=== PATIENT | female | born 1945 | race Caucasian/White ===

== ENCOUNTER 2017-06-15 16:01 | Inpatient (IN) | payer MEDICARE, OTHER ==
--- NOTE | 2017-06-15 16:08 | HP ---
SUPERVISING PHYSICIAN: Manav Noel MD CHIEF COMPLAINT: Status post right total knee arthroplasty. HISTORY OF PRESENT ILLNESS: This is a 71-year-old female patient who is being admitted to [facility] for a Swing Bed admission after she had right total knee arthroplasty per Dr. Daniel See. She will be admitted for physical therapy, strengthening and conditioning. PAST MEDICAL HISTORY: 1. Hypertension. 2. Arrhythmias. 3. Asthma. 4. Sleep apnea. 5. Diabetes. 6. Hypothyroidism. PAST SURGICAL HISTORY: 1. Two cardiac stents. 2. Hysterectomy. 3. Tonsillectomy. OUTPATIENT MEDICATIONS: Per the EMR and awaiting verification. ALLERGIES: CEPHALEXIN, AZITHROMYCIN, PENICILLINS, SULFA. SOCIAL HISTORY: She is a nonsmoker. There is no history of any alcohol use. REVIEW OF SYSTEMS: Unable to obtain due to the patient's lethargy. PHYSICAL EXAMINATION: VITAL SIGNS: Afebrile. Heart rate 89. Blood pressure 90/52. Respiratory rate 18. O2 saturation 95% on room air. GENERAL: This is a 71-year-old, obese, female patient who is lying in her hospital bed. She is in no acute distress. HEENT: Normocephalic, atraumatic. Pupils are equal and reactive. Oropharynx is clear. NECK: Supple without mass. RESPIRATORY: Somewhat diminished at the bases, otherwise clear to auscultation bilaterally. ABDOMEN: Soft, nondistended, nontender. Bowel sounds are positive. EXTREMITIES: She has a dressing to her right knee that is dry and intact. Bilateral pedal pulses are palpable at +2. There is no cyanosis or edema except around the incision site of the right knee. NEUROLOGIC: She is very lethargic. She is unable to answer questions at this time, but she does awaken and mumble words. LABORATORY AND FILMS: There are no labs or films to report at this time. ASSESSMENT: 1. Right total knee arthroplasty per Dr. Daniel See, postoperative day 3, being admitted to [facility] for Swing Bed admission. 2. Hypertension. 3. Asthma. 4. Sleep apnea. 5. Diabetes. 6. Hypothyroidism. PLAN: We will admit the patient to the hospital for Swing Bed. Physical therapy consulted for strengthening and conditioning. Her home medications have not bee started as they are awaiting verification, but she did re-start her Cleocin which was ordered by her orthopedic surgeon. She is supposed to get fondaparinux for her anticoagulant and we do not have that in our hospital, so we will need to decide what anticoagulant we will start her on tomorrow. She did get a dose of that today. I am not quite sure why she is so lethargic. I will order some neuro checks and we will monitor her neuro status overnight. There is no family at the bedside for me to discuss her condition with. I will also order some pulmonary hygiene as well as some albuterol treatments. Meanwhile, we will continue to monitor the patient closely and follow as needed. Dr. Noel is the collaborating physician and available for consultation. #[id number] [facility]
[2017-06-15] MEDS ORDERED: SODIUM PHOS/BIPHOS ENEMA ADULT 133 ML BTTL PR PRN (18:33)
[2017-06-15] MEDS ORDERED: MAGNESIUM HYDROXIDE 30 ML UD PO PRN (18:33)
[2017-06-15] MEDS ORDERED: ACETAMINOPHEN 500 MG TAB PO PRN (18:33)
[2017-06-15] MEDS ORDERED: GLUCAGON INJ 1 MG VIAL SUBCU PRN (18:35)
[2017-06-15] MEDS ORDERED: DEXTROSE 50% 25 GM/50 ML SYG IV PRN (18:35)
[2017-06-15] MEDS ORDERED: CLINDAMYCIN HCL CAP 150 MG CAP PO SCH (21:00)
[2017-06-15] MEDS: INSULIN LISPRO 100 UNITS/ML PEN SUBCU SCH (21:12)
[2017-06-15] MEDS: BIFIDOBACTERIUM INFANTIS 4 MG CAP PO SCH (21:23)
[2017-06-16] MEDS: ALBUTEROL SULFATE 2.5 MG/3 ML VIAL NEB SCH ×5 (08:14→21:12)
[2017-06-16] MEDS: INSULIN LISPRO 100 UNITS/ML PEN SUBCU SCH ×4 (08:23→21:12)
[2017-06-16] MEDS ORDERED: NALOXONE HCL INJ 0.4 MG/ML VIAL IV ONE (08:58)
[2017-06-16] MEDS ORDERED: NALOXONE HCL INJ 0.4 MG/ML VIAL IM ONE (09:06)
[2017-06-16] MEDS: BIFIDOBACTERIUM INFANTIS 4 MG CAP PO SCH ×2 (10:26→21:50)
[2017-06-16] MEDS: DOCUSATE SODIUM 100 MG CAP PO SCH (10:26)
[2017-06-16] MEDS: CLINDAMYCIN HCL CAP 150 MG CAP PO SCH ×3 (10:40→21:55)
[2017-06-16] MEDS: RIVAROXABAN 10 MG TAB PO SCH (10:47)
--- NOTE | 2017-06-16 11:56 | PCM.CORE ---
Physician DVT/VTE - Prophylaxis Currently: Patient already on anticoagulation therapy - Nurse DVT Assessment & Total Each Risk Factor Represents 5 Points: Elective Arthtroplasty Each Risk Factor Represents 2 Points: Age 60-74 Each Risk Factor is 1 Point: Varicose Veins/Edema Legs DVT Assessment Score: 8 - 5 or more Very High Risk Treatments: Sequential Compression Device
[2017-06-16] MEDS ORDERED: NALOXONE HCL INJ 0.4 MG/ML VIAL ONE (13:25)
[2017-06-16] MEDS ORDERED: SODIUM CHLORIDE 0.9% 1000ML 1,000 ML IVS PRN (16:53)
[2017-06-16] MEDS ORDERED: HYDROcodone 7.5MG/APAP 325MG 1 EA TAB PO PRN (16:54)
--- NOTE | 2017-06-16 18:02 | PN ---
DATE: 06/16/17 SUBJECTIVE: Earlier in the morning, the patient was definitely obtunded and was able to respond sometimes inappropriately, but later in the day does not remember being visited by either Dr. Milton or myself. Her pupils were small yet minimally reactive. It is of note that before leaving the hospital at [place] she received 2 of the [place] 10 mg doses for pain relief during her transport to [facility] Swing Bed Rehab. Under the assumption that possible narcotic sedation was involved, she received a very low dose of Narcan 0.2 mg IM because she did not have an IV readily available. Significant improvement was noted with her cognition and her ability to communicate, and she was much more alert with improved memory in the afternoon. Appetite is fair. Having difficulty collecting a urine specimen. She is not eating or drinking that much and will require some additional IV to assist to prevent dehydration state. Still in pain and analgesics to be continued. OBJECTIVE: Afebrile, pulse 87, blood pressure 123/65, pulse oximetry 95% on room air. Weight 116 kilos. LABORATORY: Glucose 173 fasting. The patient is noticeably confused, poorly disoriented, unable to fully answer questions appropriately. She is complaining of knee pain and is started on a CPM machine to assist with her rehabilitation. The patient is at fall risk. LUNGS: Clear. HEART: Tones regular. ABDOMEN: Soft though slightly obese. The patient is confused making it difficult especially when the patient refuses to cooperate with her ongoing rehabilitation. It is a little improved in the afternoon and further attempts to continue. ASSESSMENT: 1. Total right knee arthroplasty performed by Dr. Daniel See at the [facility], postoperative day number 4, yesterday being admitted to [facility] for Swing Bed rehabilitation. 2. History of hypertension. 3. History of asthma. 4. History of sleep apnea requiring CPAP. 5. History of diabetes mellitus. 6. History of hypothyroidism. 7. Significant sedated obtunded state probably secondary to opioid analgesic medications received last evening. Minimal response to Narcan with continued conservative approach, especially to prevent injury. PLAN: Continue with rehabilitation and close observation. Increase activity level as tolerated. Special attention to avoid falls. Continue with Xarelto anticoagulant therapy for a total of 12 days which would be approximately 8 more days. Her surgeon has ordered Cleocin for a few more days as well. Continue with analgesic control but try to avoid some of the heavy narcotics, and reevaluate in the morning. #[id number] [facility]ENTER[facility]
[2017-06-16] MEDS: KETOROLAC TROMETHAMINE INJ 30 MG/ML VIAL IV SCH (18:22)
[2017-06-16] MEDS ORDERED: SODIUM CHLORIDE 0.9% 1000ML 1,000 ML IVS ONE (22:15)
[2017-06-17] MEDS: KETOROLAC TROMETHAMINE INJ 30 MG/ML VIAL IV SCH ×3 (01:30→17:35)
[2017-06-17] MEDS: SODIUM CHLORIDE 0.9% 1000ML 1,000 ML IVS PRN ×3 (01:58→20:48)
[2017-06-17] MEDS: CLINDAMYCIN HCL CAP 150 MG CAP PO SCH ×3 (06:10→21:34)
[2017-06-17] MEDS: INSULIN LISPRO 100 UNITS/ML PEN SUBCU SCH ×4 (07:10→21:29)
[2017-06-17] MEDS: ALBUTEROL SULFATE 2.5 MG/3 ML VIAL NEB SCH ×4 (08:46→20:28)
[2017-06-17] MEDS: IV SET AND CAP CHANGE INJ INJ SCH (09:31)
[2017-06-17] MEDS: RIVAROXABAN 10 MG TAB PO SCH (09:32)
[2017-06-17] MEDS: DOCUSATE SODIUM 100 MG CAP PO SCH (09:32)
[2017-06-17] MEDS: BIFIDOBACTERIUM INFANTIS 4 MG CAP PO SCH ×2 (09:32→20:43)
--- NOTE | 2017-06-17 11:32 | PN ---
DATE: 06/17/17 SUBJECTIVE: The patient is sitting up in the bed and is much more alert than yesterday. She does not remember much about yesterdays' activities. She was very insistent upon not receiving an IV last evening. We gave her some Benzodiazepines which allowed them to continue with IV hydration overnight eventually improving her urine output. I feel that her significant altered level of consciousness was related to opioid analgesic administration given before she arrived. OBJECTIVE: Afebrile, pulse 86, pulse oximetry 96% on room air. She has had about 850 mL of output which was much improved compared to where she was. Her urinalysis showed 3 to 5 WBCs, otherwise no evidence of significant urinary tract infection contributing to her altered level of consciousness. LUNGS: Clear. HEART: Tones regular. Still with pain especially in her knee after her recent surgery with replacement of the total right knee arthroplasty performed at [facility]. ASSESSMENT: 1. Postoperative total right knee arthroplasty currently postoperative day number [address] See in [facility] with the patient being admitted to Swing Bed for rehabilitation. 2. Altered level of consciousness noted probably secondary to opioid analgesia now showing improvement, but with continued care to avoid repeating. 3. History of hypertension. 4. History of asthma. 5. History of sleep apnea requiring CPAP. 6. History of diabetes mellitus. 7. History of hypothyroidism. PLAN: Continue with rehabilitation with physical therapy. Continue Xarelto anticoagulation for a total of 12 days with 7 more days left. Continue with analgesic control but try to avoid the heavy narcotics as physical therapy continues with her rehabilitation program. #[id number] [facility]
[2017-06-17] MEDS ORDERED: ALUM & MAG HYDROX-SIMETHICONE 30 ML UD PO PRN (15:05)
[2017-06-18] MEDS: KETOROLAC TROMETHAMINE INJ 30 MG/ML VIAL IV SCH ×2 (00:37→08:36)
[2017-06-18] MEDS: SODIUM CHLORIDE 0.9% 1000ML 1,000 ML IVS PRN (05:52)
[2017-06-18] MEDS: CLINDAMYCIN HCL CAP 150 MG CAP PO SCH ×3 (05:55→21:50)
[2017-06-18] MEDS: ALBUTEROL SULFATE 2.5 MG/3 ML VIAL NEB PRN (06:22)
[2017-06-18] MEDS: INSULIN LISPRO 100 UNITS/ML PEN SUBCU SCH ×4 (07:26→21:30)
[2017-06-18] MEDS: ALBUTEROL SULFATE 2.5 MG/3 ML VIAL NEB SCH ×4 (08:28→20:48)
[2017-06-18] MEDS: BIFIDOBACTERIUM INFANTIS 4 MG CAP PO SCH ×2 (09:54→20:34)
[2017-06-18] MEDS: RIVAROXABAN 10 MG TAB PO SCH (09:54)
[2017-06-18] MEDS: DOCUSATE SODIUM 100 MG CAP PO SCH (09:54)
[2017-06-18] MEDS ORDERED: SODIUM CHLORIDE 0.9% (FLUSH) 10 ML SYG IV SCH (12:30)
[2017-06-18] MEDS ORDERED: MAGNESIUM HYDROXIDE 30 ML UD PO ONE (13:00)
--- NOTE | 2017-06-18 14:01 | PN ---
DATE: 06-18-17 SUBJECTIVE: Today is the third day of Swing Bed rehabilitation for postoperative right total knee arthroplasty rehabilitation to allow the patient eventually to be able to safely return home. Mental confusion noted upon the first 2 days of her admission has seemed to have almost completely resolved and is probably related to the significant opioid reaction at the time of her transfer from the other hospital. She seems to be quite alert at this time and is able to communicate nicely with her friends who also feel that she seems to be more normal. Appetite is improving. Still with pain in her right knee but it seems to be better. She is tolerating to some degree and an improved degree the CPM machine treatment course. She has had some bowel movements but is concerned that she may be filling up so we will continue to assist her in that event. OBJECTIVE: Afebrile, pulse 78, blood pressure 136/60 pulse oximetry 98% on room air. Weight is 119.3 kg. LUNGS: Clear. HEART: Tones regular. ABDOMEN: Obese yet fairly soft. RIGHT KNEE: Her right knee is tender and is feeling better with a pillow under it to assist with slightly degree of flexion instead of full extension positioning. Will also place some ice bath to it to assist with the ongoing inflammation process. She continues with the CPM. ASSESSMENT: 1. The patient is currently day #6 postoperative total right knee arthroplasty performed by Dr. See in the [facility] with the patient being admitted to our hospital for Swing Bed rehabilitation. 2. Altered level of consciousness noted on admission, probably secondary to opioid analgesia excess and sedating effects, now improving significantly. . 3. History of hypertension. 4. History of asthma. 5. History of sleep apnea requiring CPAP. 6. History of diabetes mellitus. 7. History of hypothyroidism. PLAN: Will continue with rehabilitation with physical therapy assistance now that her cognition and orientation is much improved. Continue Xarelto for DVT anticoagulation. Encouraged muscle contraction of the lower extremities and deep breathing. Continue with analgesic control with medications as needed. Repeat milk of magnesia to help prevent further constipation and continue with localized treatment to improve her ability to function so that she will eventually be able to rerun home safely with followup in the clinic with Dr. Milton when discharged. #[id number] [facility]
[2017-06-18] MEDS: HYDROcodone 5MG/APAP 325MG 1 EA TAB PO PRN (19:27)
[2017-06-19] MEDS: CLINDAMYCIN HCL CAP 150 MG CAP PO SCH ×4 (06:22→21:26)
[2017-06-19] MEDS ORDERED: ACETAMINOPHEN 325 MG TAB PO ONE (06:56)
[2017-06-19] MEDS ORDERED: diphenhydrAMINE HCL 50 MG/ML VIAL IV ONE (06:56)
[2017-06-19] MEDS ORDERED: SODIUM CHLORIDE 0.9% 500ML 500 ML IVS SCH (07:00)
[2017-06-19] MEDS: INSULIN LISPRO 100 UNITS/ML PEN SUBCU SCH ×4 (07:06→20:51)
[2017-06-19] MEDS: ALBUTEROL SULFATE 2.5 MG/3 ML VIAL NEB SCH ×4 (08:36→20:43)
[2017-06-19] MEDS: BIFIDOBACTERIUM INFANTIS 4 MG CAP PO SCH ×2 (09:52→20:25)
[2017-06-19] MEDS: RIVAROXABAN 10 MG TAB PO SCH (09:53)
[2017-06-19] MEDS: DOCUSATE SODIUM 100 MG CAP PO SCH (09:53)
[2017-06-19] MEDS ORDERED: FUROSEMIDE INJ 20 MG/2 ML VIAL IV ONE (12:00)
[2017-06-19] MEDS ORDERED: FUROSEMIDE INJ 20 MG/2 ML VIAL ONE (14:08)
[2017-06-19] MEDS: ALBUTEROL SULFATE 2.5 MG/3 ML VIAL NEB PRN (14:32)
[2017-06-19] MEDS: ACETAMINOPHEN 325 MG TAB PO PRN ×2 (14:45→20:51)
[2017-06-19] MEDS ORDERED: BENZOCAINE-MENTH LOZ (CEPACOL) 1 EA LOZ MT PRN (19:26)
--- NOTE | 2017-06-19 21:02 | PN ---
DATE: 06/19/17 SUPERVISING PHYSICIAN: Braeden Anand M.D. SUBJECTIVE: The patient is much more alert today. She notes that her pain has been fairly well controlled with additional Tylenol between [place]. She has been using CPM and able to function with physical therapy after initiation of blood which she has been tolerating. OBJECTIVE: She remains afebrile, temperature 99.1, pulse 76, blood pressure 145 /73, respirations 16, satting 98% on room air. I's and O's show a positive balance of 710 with 1635 in, 925 out. Weight is 119.3 kg. CHEST: Lungs are clear to auscultation bilaterally, just slightly diminished towards the bases. HEART: Regular rate and rhythm. ABDOMEN: Obese but soft, non-tender. Positive bowel sounds. EXTREMITIES: Right knee has a dressing in place. There is minimal erythema. No signs of infection. Pulses distally are strong. Capillary refill was brisk. LABORATORY: Today shows hemoglobin 7.5, hematocrit 22.0, white count 6.9, platelet count 239,000. Differential shows to be within normal limits. Chemistries show normal electrolytes with just a slightly elevated chloride of 112, BUN 20, creatinine 0.97, glucoses have been in the 130s to 140s. Liver function shows to be within normal limits. ASSESSMENT: 1. Postoperative day 7 total right knee arthroplasty performed by Dr. See in [facility] with the patient being placed into Swing Bed for continued rehabilitation. 2. Altered level of consciousness on admission probably secondary to opioid analgesics sedating effects prior to being transferred with the patient showing improvement. 3. Significant anemia requiring transfusion of 2 units of packed red blood cells likely from previous surgical process and ongoing acute illness. 4. Hypertension. 5. Asthma. 6. History of sleep apnea on CPAP. 7. Diabetes mellitus, controlled. 8. Hypothyroidism. PLAN: Will continue with physical therapy and rehabilitation under the guidance of Physical Therapy. She is on Xarelto. She is getting 2 units of packed red blood cells today and will plan to repeat an H&H in the morning. Will anticipate discharge once the patient has met her goals as per Physical Therapy. Until then, will continue to monitor her appropriately. Once discharged, the patient will need ongoing clinical followup with Dr. Milton. [facility][id number] [facility]
[2017-06-20] MEDS: CLINDAMYCIN HCL CAP 150 MG CAP PO SCH ×3 (06:09→22:07)
[2017-06-20] MEDS: INSULIN LISPRO 100 UNITS/ML PEN SUBCU SCH ×4 (07:00→20:57)
[2017-06-20] MEDS ORDERED: HYDROmorphone HCL INJ 2 MG/ML VIAL ONE (08:26)
[2017-06-20] MEDS: ALBUTEROL SULFATE 2.5 MG/3 ML VIAL NEB SCH ×4 (09:10→20:00)
[2017-06-20] MEDS: BIFIDOBACTERIUM INFANTIS 4 MG CAP PO SCH ×2 (09:34→20:54)
[2017-06-20] MEDS: IV SET AND CAP CHANGE INJ INJ SCH (09:34)
[2017-06-20] MEDS: RIVAROXABAN 10 MG TAB PO SCH (09:34)
[2017-06-20] MEDS: DOCUSATE SODIUM 100 MG CAP PO SCH (09:34)
[2017-06-20] MEDS: ACETAMINOPHEN 325 MG TAB PO PRN (10:04)
[2017-06-20] MEDS: OMEPRAZOLE CAP 20 MG CAP PO SCH (13:06)
[2017-06-20] MEDS: HYDROcodone 5MG/APAP 325MG 1 EA TAB PO PRN (20:54)
[2017-06-21] MEDS: CLINDAMYCIN HCL CAP 150 MG CAP PO SCH ×3 (05:40→22:19)
[2017-06-21] MEDS: OMEPRAZOLE CAP 20 MG CAP PO SCH (06:43)
[2017-06-21] MEDS: INSULIN LISPRO 100 UNITS/ML PEN SUBCU SCH ×3 (07:39→16:26)
[2017-06-21] MEDS: BIFIDOBACTERIUM INFANTIS 4 MG CAP PO SCH ×2 (08:34→20:48)
[2017-06-21] MEDS: DOCUSATE SODIUM 100 MG CAP PO SCH (08:34)
[2017-06-21] MEDS: RIVAROXABAN 10 MG TAB PO SCH (08:34)
[2017-06-21] MEDS: ALBUTEROL SULFATE 2.5 MG/3 ML VIAL NEB SCH ×4 (08:47→20:35)
[2017-06-21] MEDS: ACETAMINOPHEN 325 MG TAB PO PRN (09:35)
[2017-06-21] MEDS: HYDROcodone 5MG/APAP 325MG 1 EA TAB PO PRN ×2 (14:08→20:53)
[2017-06-22] MEDS: INSULIN LISPRO 100 UNITS/ML PEN SUBCU SCH ×5 (00:03→21:18)
[2017-06-22] MEDS: OMEPRAZOLE CAP 20 MG CAP PO SCH (05:38)
[2017-06-22] MEDS: CLINDAMYCIN HCL CAP 150 MG CAP PO SCH ×3 (05:39→21:19)
[2017-06-22] MEDS: ALBUTEROL SULFATE 2.5 MG/3 ML VIAL NEB SCH ×4 (08:10→19:35)
[2017-06-22] MEDS: BIFIDOBACTERIUM INFANTIS 4 MG CAP PO SCH ×2 (09:58→21:19)
[2017-06-22] MEDS: RIVAROXABAN 10 MG TAB PO SCH (09:58)
[2017-06-22] MEDS: DOCUSATE SODIUM 100 MG CAP PO SCH (09:58)
[2017-06-22] MEDS: ACETAMINOPHEN 325 MG TAB PO PRN (13:06)
--- NOTE | 2017-06-22 15:19 | PN ---
DATE: 06/22/17 SUPERVISING PHYSICIAN: Manuel Moore M.D. SUBJECTIVE: The patient continues to do well with her physical therapy. She has had good control of his pain. She remains afebrile. OBJECTIVE: VITAL SIGNS: Temperature 98.7, pulse 83, blood pressure 145/65, respirations 16, satting 97% on room air. I's and O's show a negative balance of 1372 with 1280 in, 2652 out. She has had several bowel movements. Weight is 117.9 kg. CHEST: Lungs are clear to auscultation bilaterally. HEART: Regular rate and rhythm. ABDOMEN: Obese but soft, non-tender. EXTREMITIES: No clubbing, cyanosis or edema. Right knee has a bandage in place that is clean and dry. There are no signs of infection. NEUROLOGIC: She is alert and oriented times three. ASSESSMENT: 1. Postoperative day 10 total right knee arthroplasty performed by Dr. See in [facility] with the patient being placed into Swing Bed for continued rehabilitation. 2. Altered level of consciousness on admission felt to be secondary to opioid analgesics sedating effects prior to being transferred with the patient showing improvement through her hospitalization. 3. Significant anemia that required transfusion of 2 units of packed blood cells likely from previous surgical process and ongoing acute illness shown to be stable. 4. Hypertension. 5. Asthma. 6. History of sleep apnea on CPAP. 7. Diabetes mellitus, controlled. 8. Hypothyroidism. PLAN: Will continue with physical therapy and rehabilitation in anticipation of discharge home tomorrow. Once discharged she will need followup with Dr. See as well as her primary care physician, Dr. Milton. Until then, will continue to follow and treat appropriately. #[id number] [facility]
[2017-06-22] MEDS: HYDROcodone 5MG/APAP 325MG 1 EA TAB PO PRN (18:15)
[2017-06-23 02:23] VITALS: O2SAT 98
[2017-06-23] MEDS: OMEPRAZOLE CAP 20 MG CAP PO SCH (06:57)
[2017-06-23] MEDS: IV SET AND CAP CHANGE INJ INJ SCH (08:00)
[2017-06-23] MEDS: INSULIN LISPRO 100 UNITS/ML PEN SUBCU SCH (08:00)
[2017-06-23] MEDS: ALBUTEROL SULFATE 2.5 MG/3 ML VIAL NEB SCH (08:48)
[2017-06-23] MEDS: BIFIDOBACTERIUM INFANTIS 4 MG CAP PO SCH (09:14)
[2017-06-23] MEDS: RIVAROXABAN 10 MG TAB PO SCH (09:14)
[2017-06-23] MEDS: DOCUSATE SODIUM 100 MG CAP PO SCH (09:16)
--- NOTE | 2017-06-23 11:44 | DS ---
SUPERVISING PHYSICIAN: Manuel Moore MD DISCHARGE DIAGNOSIS: 1. Postoperative day 11 total right knee arthroplasty performed by Dr. See in [place] and being admitted to [facility] for Swing Bed for strengthening and conditioning and continued rehabilitation. 2. Altered level of consciousness on admission felt to be secondary to opioid analgesics sedating effects prior to being transferred, improved. 3. Significant anemia that required transfusion of 2 units of packed blood cells, at this point is stable. 4. Hypertension. 5. Asthma. 6. History of sleep apnea on CPAP. 7. Diabetes mellitus, controlled. 8. Hypothyroidism. HISTORY OF PRESENT ILLNESS: This is a 71-year-old female who was admitted to [facility] for Swing Bed admission. She had a right total knee arthroplasty per Dr. Daniel See in [place] on 06/12/17. She entered her postoperative period without any problems and then was transferred to [facility] for further strengthening and conditioning. Initially when she presented to the hospital, she was obtunded and it was thought to be due to the sedation or opioid administration that was given to prior to transfer. After several days, her neurologic status returned to baseline. She continued to progress well with her physical therapy. At this point, she has met all the criteria for discharge and she will be discharged home. DISCHARGE PLAN: The patient will be discharged home in stable condition. She will have [facility]'s home health and physical therapy as followup. She is to resume her previous diet. She has 2 additional days of Xarelto for DVT prophylaxis. She is to schedule a followup appointment with Dr. Milton, her primary care physician, as well as Dr. See, her orthopedic surgeon. DISCHARGE MEDICATIONS: 1. Folic acid. 2. Aspirin at completion of her Xarelto. 3. Metformin. 4. Lysine. 5. Lycopene. 6. Loratadine. 7. Biotin. 8. Albuterol inhaler. 9. Alpha lipoic acid. 10. Flax seed. 11. Bydureon. 12. Vitamin D3. 13. Vitamin B12. 14. Fluticasone. 15. Calcification citrate. 16. Resveratrol. 17. Systane Ultra eyedrops. 18. [place] 3 fatty acids. 19. Visine. 20. Multivitamins. 21. Methylsulfonylmethane. 22. Zofran. 23. Clindamycin. 24. Zinc. 25. Vitamin K. 26. Vitamin E. 27. Hydrocodone. 28. Senokot. 29. Docusate sodium. 30. Levothyroxine. 31. Lecithin. 32. Garlic. 33. B complex vitamins. 34. Valsartan. 35. Tumeric. 36. Sodium chloride nasal spray. 37. Safflower oil. 38. Hyaluronic acid. 39. Lutein and Zeaxanthin. 40. Magnesium. 41. Lactobacillus acidophilus. 42. Coenzyme Q 10. 43. Xarelto times [address] Moore is the collaborating physician and available for consultation. . #[id number] [facility]
[2017-06-23 11:52] VITALS: BP 156/71; TEMP 98
== END 2017-06-23 11:25 | disposition home health service (06) | DRG 560 ==
LOC: MS 16:01
PROVIDERS: ADMIT Nurse Practitioner Acute Care; ATTEND Nurse Practitioner Acute Care
PROC: 30233N1 Transfusion of Nonautologous Red Blood Cells into Peripheral Vein, Percutaneous Approach (ICD-10-PCS; principal; 2017-06-19)
DX: Z47.1 Aftercare following joint replacement surgery (principal); Z68.42 Body mass index [BMI] 45.0-49.9, adult; R41.82 Altered mental status, unspecified; T40.2X5A Adverse effect of other opioids, initial encounter; D64.9 Anemia, unspecified; I10 Essential (primary) hypertension; J45.909 Unspecified asthma, uncomplicated; G47.30 Sleep apnea, unspecified; E11.9 Type 2 diabetes mellitus without complications; E03.9 Hypothyroidism, unspecified; E66.9 Obesity, unspecified; Z96.651 Presence of right artificial knee joint; Y92.230 Patient room in hospital as the place of occurrence of the external cause; Z95.5 Presence of coronary angioplasty implant and graft; Z88.1 Allergy status to other antibiotic agents; Z88.0 Allergy status to penicillin; Z88.2 Allergy status to sulfonamides

== ENCOUNTER → 2017-07-06 | Outpatient (CLI) | payer MEDICARE, OTHER | END | disposition home or self-care (01) | LOC: GRHH 10:15 | PROVIDERS: ATTEND Family Medicine | DX: D64.9 Anemia, unspecified (principal) ==

== ENCOUNTER → 2017-10-05 | Outpatient (CLI) | payer MEDICARE, OTHER | END | disposition home or self-care (01) | LOC: GMAB 10:41 | PROVIDERS: ATTEND Family Medicine | DX: E03.9 Hypothyroidism, unspecified (principal) ==

== ENCOUNTER → 2019-01-18 | Outpatient (CLI) | payer MEDICARE, OTHER | LOC: GMAE 14:27 | PROVIDERS: ATTEND Family Medicine | DX: M54.6 Pain in thoracic spine (principal); R07.2 Precordial pain ==

== ENCOUNTER → 2019-04-29 | Outpatient (CLI) | payer MEDICARE, OTHER | LOC: GMAE 11:45 | PROVIDERS: ATTEND Family Medicine | DX: E03.9 Hypothyroidism, unspecified (principal); E11.9 Type 2 diabetes mellitus without complications; E78.2 Mixed hyperlipidemia ==

== ENCOUNTER → 2019-08-22 | Outpatient (CLI) | payer MEDICARE, OTHER | LOC: GMAE 10:35 | PROVIDERS: ATTEND Family Medicine | DX: E04.1 Nontoxic single thyroid nodule (principal) ==

== ENCOUNTER → 2020-05-22 | Outpatient (CLI) | payer MEDICARE, OTHER ==
--- NOTE | 2020-05-22 14:47 | US ---
US THYROID CLINICAL STATEMENT:74 years Female HYPOTHYROIDISM UNSPEC.. Previous bilateral partial thyroidectomy. No palpable mass. COMPARISON: None TECHNIQUE: Transcutaneous scanning, grayscale and Doppler modes. FINDINGS: Size right thyroid lobe: 1.8 x 0.7 x 0.4 cm Size left thyroid lobe: 2.9 x 1.4 x 1.1 cm Size isthmus: 0.4 cm Estimated total number of nodules greater than or equal to 1 cm: None. Nodule 1: Size: 0.6 x 0.3 x 0.3 cm Location: Left Mid Composition: solid or almost completely solid: 2 points Echogenicity: hyperechoic: 1 point Shape: wider than tall: 0 points Margins: smooth: 0 points Echogenic foci: none: 0 points ACR Total Points: 3; ACR TI-RADS risk category: TR3 - mildly suspicious nodule. Soft tissue around the thyroid gland is unremarkable. IMPRESSION: 1. Nodule 1: ACR TI-RADS 2017 Category TR3. Recommend: No further follow-up.. Recommendations based upon [employer] Best Practice recommendations and ACR TI-RADS 2017 guidelines. Please see below*. 2. No findings in the surrounding soft tissues. *ACR TI-RADS 2017 Recommendations for imaging follow-up of nodules: TR1: No FNA or follow up TR2: No FNA or follow up TR3: FNA if >/= 2.5 cm, follow up if 1.5 - 2.4 cm in 1, 3, and 5 years TR4: FNA if >/= 1.5 cm, follow up if 1.0 - 1.4 cm in 1, 2, 3, and 5 years TR5: FNA if >/= 1.0 cm, follow up if 0.5 - 0.9 cm every year for 5 years ACR TI-RADS recommends that no more than two nodules with the highest ACR TI-RADS total point should be biopsied and no more than four nodules should be followed. These recommendations do not apply to patients with increased risk for thyroid cancer or patients with symptomatic thyroid disease. Electronically signed by: Jeffrey Mackey MD 05/22/2020 2:46 PM CDT
== END ==
LOC: US 09:21
PROVIDERS: ATTEND Internal Medicine Endocrinology, Diabetes & Metabolism
DX: E04.1 Nontoxic single thyroid nodule (principal); E03.9 Hypothyroidism, unspecified

== ENCOUNTER 2020-05-30 07:38 | Emergency (ER) | payer MEDICARE, OTHER ==
[2020-05-30] MEDS ORDERED: ONDANSETRON INJ 4 MG/2 ML VIAL IV ONE (07:49)
[2020-05-30] MEDS ORDERED: SODIUM CHLORIDE 0.9% (FLUSH) 10 ML SYG IV PRN (07:49)
[2020-05-30] MEDS ORDERED: ASPIRIN TABLET 325 MG TAB PO ONE (07:49)
[2020-05-30] MEDS ORDERED: SODIUM CHLORIDE 0.9% 1000ML 1,000 ML IVS ONE (07:51)
--- NOTE | 2020-05-30 07:54 | ED.PDOC ---
History of Present Illness - General Time Seen by Provider: 05/30/20 07:44 Source: patient, RN notes reviewed, Vital Signs reviewed, RN/MD Exam Limitations: no limitations - History of Present Illness Initial Comments: Patient is a 74-year-old female with past medical history of coronary artery disease and asthma who presents the ED for 2-week history of feeling like her heart is racing. States she was out in the heat mowing her lawn 2 weeks ago for an extended period of time and since that time she has had episodes of feeling short of breath, nausea and rapid heartbeat. Whenever she awoke this morning her pulse was 139 so she came to ED for evaluation. She denies chest pain, but states she has a strange sensation in her chest and has been feeling more short of breath than usual. She denies fever, near syncope, syncope, cough, vomiting, abdominal pain or diarrhea. Allergies/Adverse Reactions: Allergies Cephalexin [From Keflex] Allergy (Verified 05/30/20 09:00) Erythromycin Allergy (Verified 05/30/20 09:00) Penicillins Allergy (Verified 05/30/20 09:00) Sulfa Antibiotics Allergy (Verified 05/30/20 09:00) Home Medications: Ambulatory Orders RX: Albuterol Inhaler [Ventolin Hfa Inhaler] 1 puff INH BID 06/15/17 RX: Alpha-Lipoic Acid (Thioctic AC [Alpha Lipoic Acid] 600 mg PO DAILY@69906/15/17 RX: Aspirin 325 mg PO QD 06/15/17 RX: Biotin 15 mg PO DAILY@69906/15/17 RX: Calcium Citrate [Angelito-Citrate] 400 mg PO BID 06/15/17 RX: Cholecalciferol [Vitamin D3] 1,000 unit PO DAILY@69906/15/17 RX: Clindamycin HCl 300 mg PO TID 06/15/17 RX: Cyanocobalamin [B-12] 5,000 mcg PO DAILY 06/15/17 RX: Docusate Sodium 100 mg PO BID 06/15/17 RX: Exenatide [Bydureon] 1 mg IM WKLY 06/15/17 RX: Flaxseed (Linseed) [Flaxseed Oil 1200 mg] 1,200 cap PO DAILY@69906/15/17 RX: Fluticasone Propionate (Nasal) [Flonase Allergy Relief] 50 mcg NA DAILY 06/15/17 RX: Folic Acid 1 mg PO DAILY@69906/15/17 RX: Garlic 1,000 mg PO DAILY@69906/15/17 RX: HYDROcodone 10MG/APAP 325MG [Coleridge 10/325] 1 ea PO .Q4H PRN 06/15/17 RX: Lecithin 1,200 mg PO DAILY@69906/15/17 RX: Levothyroxine Sodium [Synthroid] 75 mcg PO ACBK 06/15/17 RX: Loratadine [Claritin] 10 mg PO DAILY 06/15/17 RX: Lycopene 40 mg PO DAILY@69906/15/17 RX: Lysine [l-Lysine] 1,000 mg PO DAILY@69906/15/17 RX: Metformin HCl [Metformin Hydrochloride] 1,000 mg PO BID 06/15/17 RX: Methylsulfonylmethane [MSM] 1,000 mg PO BID 06/15/17 RX: Multiple Vitamins W/ Minerals [Multivitamin Women 50+] 1 tab PO DAILY@69906/15/17 RX: Naphazoline W/ Pheniramine [Visine-A 0.025-0.3 %] 1 drop BOTH_EYES TID PRN 06/15/17 RX: Arcade-3 Fatty Acids [Arcade III Epa+Dha 1000 mg] 1 cap PO BID 06/15/17 RX: Arcade-3 Fatty Acids [Arcade-3 Fish Oil 500 mg] 1 cap PO DAILY@69906/15/17 RX: Ondansetron HCl [Ondansetron Hydrochloride] 4 mg PO Q6HR PRN 06/15/17 RX: Phytonadione [Vitamin K] 100 mcg PO DAILY@69906/15/17 RX: Polyethylene Glycol-Propylene [Systane Ultra 0.4-0.3 %] 2 drop BOTH_EYES DAILY PRN 06/15/17 RX: Resveratrol 500 mg PO DAILY@69906/15/17 RX: Sennosides 8.6MG [Senokot] 8.6 mg PO DAILY@69906/15/17 RX: Vitamin E [E-400] 400 unit PO DAILY@69906/15/17 RX: Zinc 50 mg PO BEDTIME 06/15/17 Hyaluronic Acid 100 mg PO BID 06/16/17 Lactobabacillus Acidophlilus 06/16/17 Lutein-Zeaxanthin 40 - 50 mg PO DAILY@69906/16/17 Magnesium 400 mg PO BID 06/16/17 RX: B-Complex Vitamins [Vitamin B Complex] 1 tab PO DAILY@69906/16/17 RX: Coenzyme Q10 (Ubidecarenone) [Co Q-10] 100 mg PO DAILY@69906/16/17 RX: Safflower Oil (Bulk) [Safflower Oil] 1,000 mg PO DAILY@69906/16/17 RX: Turmeric (Curcuma Longa) [Turmeric] 1,000 mg PO DAILY@69906/16/17 RX: Valsartan [Diovan] 160 mg PO BID 06/16/17 Sodium Chloride 0.65% Nasal Sp 2 spray PHANI .Q2HR PRN 06/16/17 RX: Bifidobacterium Infantis [Align] 4 mg PO BID 06/23/17 RX: Rivaroxaban [Xarelto] 10 mg PO DAILY #2 tablet 06/23/17 Review of Systems - Review of Systems Constitutional: Denies: chills, fever, weakness EENTM: Denies: blurred vision, nose congestion, throat pain Respiratory: States: short of breath. Denies: cough, orthopnea Cardiology: States: palpitations. Denies: chest pain, edema, syncope Gastrointestinal/Abdominal: States: nausea. Denies: abdominal pain, diarrhea, vomiting Genitourinary: States: no symptoms reported Musculoskeletal: Denies: back pain, muscle pain, neck pain Skin: States: no symptoms reported Neurological: Denies: headache, paresthesia Hematologic/Lymphatic: Denies: blood clots All other Systems: Reviewed and Negative Past Medical History (General) - Patient Medical History Hx Seizures: No Hx Stroke: No Hx Asthma: Yes Hx of COPD: No Hx Congestive Heart Failure: No Hx Pacemaker: No Hx Hypertension: Yes Hx Diabetes: Yes Hx MRSA: No - Social History Hx Alcohol Use: No Hx Substance Use: No Hx Physical Abuse: No Hx Emotional Abuse: No Family Medical History - Family History Father Family History: Unknown Living Status: Mother Family History: Unknown Living Status: Physical Exam - Physical Exam General Appearance: Alert, Comfortable, No apparent distress Ears, Nose, Throat: normal pharynx Neck: non-tender, full range of motion, supple Respiratory: chest non-tender, lungs clear, normal breath sounds, no respiratory distress, no accessory muscle use Cardiovascular/Chest: normal peripheral pulses, no edema, no JVD, tachycardia Gastrointestinal/Abdominal: non tender, soft, no pulsatile mass Back Exam: no CVA tenderness, no vertebral tenderness Extremity: normal range of motion, non-tender, no pedal edema, no calf tenderness Neurologic: no motor/sensory deficits, alert, normal mood/affect Skin Exam: warm/dry Progress - Progress Progress: 05/30/20 07:57 Differential diagnosis includes but is not limited to acute coronary syndrome, pulmonary embolism, SVT, atrial fibrillation, atrial flutter, congestive heart failure, dehydration, asthma exacerbation 05/30/20 08:36 Patient resting comfortably, denies palpitations at this time. alarm security or surveillance monitor shows that her rate is in the 70s and 80s we will get repeat EKG to evaluate for arrhythmia. I have discussed initial labs. 05/30/20 09:13 Patient presented with palpitations on and off for the past 2 weeks. In the ED initial rate was in the 130s with a regular narrow complex tachycardia. After IV fluids, rate dropped into the 70s and appeared to be irregular so repeat EKG was performed that shows atrial flutter with variable AV block at a rate of 67. Initial EKG was atrial flutter with 2:1 conduction. Troponin and d-dimer are negative. Patient denies a history of irregular heartbeat and is on no rate control med or blood thinner, her steam blocker is Dr. Lehman. I will attempt to contact her steam blocker about further treatment plan. 05/30/20 09:24 D/W Lindsey Kan, school occupational therapist steam blocker, recommends transfer to [facility] for new onset a flutter and he will consult. Start Cardizem drip if rate > 100. D/W patient and she agrees with transfer and treatment plan. 05/30/20 09:32 D/W Dr. Land, [facility] Hospitalist, via transfer line and he accepts patient transfer. Awaiting bed availability. 05/30/20 13:03 - Results/Orders Results/Orders: EKG: Sinus tachycardia, rate 130, nml intervals, nonspecific ST abnormality Repeat EKG: Atrial flutter, rate 67, nml QRS interval, nonspecific ST a bnormality CHEST XRAY No acute process 05/30/20 07:49 Sodium Chloride 0.9% (Flush) [Saline Flush Syringe] 10 ml IV PRN PRN EKG Stat Pulse Ox Stat Chest,1 View [RAD] Stat 05/30/20 07:50 Pulse Oximetry Assessment DAILY 05/30/20 08:45 EKG .ONCE 05/30/20 10:00 diltiaZEM DRIP [Cardizem Drip] 125 mg Sodium Chloride 0.9% 100Ml [NS (NACL 0.9%) 100ml] 100 ml IVPB PRN Laboratory Results - last 24 hr 05/30/20 05/30/20 05/30/20 07:05 07:49 07:55 WBC 6.5 RBC 4.83 Hgb 14.7 Hct 42.7 MCV 88.3 MCH 30.5 MCHC 34.5 RDW 13.2 Plt Count 183 MPV 8.6 Absolute Neuts (auto) 3.00 Absolute Lymphs (auto) 2.50 Absolute Monos (auto) 0.60 Absolute Eos (auto) 0.30 Absolute Basos (auto) 0.10 Neutrophils % 47.2 Lymphocytes % 38.4 Monocytes % 9.0 Eosinophils % 4.6 Basophils % 0.8 PT 9.9 INR 1.00 PTT (SP) 21.8 D-Dimer, Quantitative 252.0 Sodium 138 Potassium 4.3 Chloride 106 Carbon Dioxide 19 L Anion Gap 17.3 BUN 25 H Creatinine 0.98 BUN/Creatinine Ratio 25.5 H Random Glucose 154 H Serum Osmolality 283.2 Calcium 9.8 Magnesium 1.6 L Creatine Kinase 77 CK-MB (CK-2) 3.0 CK-MB (CK-2) % Not Reportable Troponin I 0.02 B-Natriuretic Peptide 131.0 H TSH 3.88 Departure - Departure Clinical Impression: Atrial flutter, Palpitations, Essential hypertension, Tachycardia Time of Disposition: 09:28 Disposition: Transfer to Hospital Condition: Fair Referrals: ZORAIDA MARQUEZ MD [Primary Care Provider] - 1-2 Weeks Home Medications: Ambulatory Orders RX: Albuterol Inhaler [Ventolin Hfa Inhaler] 1 puff INH BID 06/15/17 RX: Alpha-Lipoic Acid (Thioctic AC [Alpha Lipoic Acid] 600 mg PO DAILY@69906/15/17 RX: Aspirin 325 mg PO QD 06/15/17 RX: Biotin 15 mg PO DAILY@69906/15/17 RX: Calcium Citrate [Angelito-Citrate] 400 mg PO BID 06/15/17 RX: Cholecalciferol [Vitamin D3] 1,000 unit PO DAILY@69906/15/17 RX: Clindamycin HCl 300 mg PO TID 06/15/17 RX: Cyanocobalamin [B-12] 5,000 mcg PO DAILY 06/15/17 RX: Docusate Sodium 100 mg PO BID 06/15/17 RX: Exenatide [Bydureon] 1 mg IM WKLY 06/15/17 RX: Flaxseed (Linseed) [Flaxseed Oil 1200 mg] 1,200 cap PO DAILY@69906/15/17 RX: Fluticasone Propionate (Nasal) [Flonase Allergy Relief] 50 mcg NA DAILY 06/15/17 RX: Folic Acid 1 mg PO DAILY@69906/15/17 RX: Garlic 1,000 mg PO DAILY@69906/15/17 RX: HYDROcodone 10MG/APAP 325MG [Coleridge 10/325] 1 ea PO .Q4H PRN 06/15/17 RX: Lecithin 1,200 mg PO DAILY@69906/15/17 RX: Levothyroxine Sodium [Synthroid] 75 mcg PO ACBK 06/15/17 RX: Loratadine [Claritin] 10 mg PO DAILY 06/15/17 RX: Lycopene 40 mg PO DAILY@69906/15/17 RX: Lysine [l-Lysine] 1,000 mg PO DAILY@69906/15/17 RX: Metformin HCl [Metformin Hydrochloride] 1,000 mg PO BID 06/15/17 RX: Methylsulfonylmethane [MSM] 1,000 mg PO BID 06/15/17 RX: Multiple Vitamins W/ Minerals [Multivitamin Women 50+] 1 tab PO DAILY@69906/15/17 RX: Naphazoline W/ Pheniramine [Visine-A 0.025-0.3 %] 1 drop BOTH_EYES TID PRN 06/15/17 RX: Arcade-3 Fatty Acids [Arcade III Epa+Dha 1000 mg] 1 cap PO BID 06/15/17 RX: Arcade-3 Fatty Acids [Arcade-3 Fish Oil 500 mg] 1 cap PO DAILY@69906/15/17 RX: Ondansetron HCl [Ondansetron Hydrochloride] 4 mg PO Q6HR PRN 06/15/17 RX: Phytonadione [Vitamin K] 100 mcg PO DAILY@69906/15/17 RX: Polyethylene Glycol-Propylene [Systane Ultra 0.4-0.3 %] 2 drop BOTH_EYES DAILY PRN 06/15/17 RX: Resveratrol 500 mg PO DAILY@69906/15/17 RX: Sennosides 8.6MG [Senokot] 8.6 mg PO DAILY@69906/15/17 RX: Vitamin E [E-400] 400 unit PO DAILY@69906/15/17 RX: Zinc 50 mg PO BEDTIME 06/15/17 Hyaluronic Acid 100 mg PO BID 06/16/17 Lactobabacillus Acidophlilus 06/16/17 Lutein-Zeaxanthin 40 - 50 mg PO DAILY@69906/16/17 Magnesium 400 mg PO BID 06/16/17 RX: B-Complex Vitamins [Vitamin B Complex] 1 tab PO DAILY@69906/16/17 RX: Coenzyme Q10 (Ubidecarenone) [Co Q-10] 100 mg PO DAILY@69906/16/17 RX: Safflower Oil (Bulk) [Safflower Oil] 1,000 mg PO DAILY@69906/16/17 RX: Turmeric (Curcuma Longa) [Turmeric] 1,000 mg PO DAILY@69906/16/17 RX: Valsartan [Diovan] 160 mg PO BID 06/16/17 Sodium Chloride 0.65% Nasal Sp 2 spray PHANI .Q2HR PRN 06/16/17 RX: Bifidobacterium Infantis [Align] 4 mg PO BID 06/23/17 RX: Rivaroxaban [Xarelto] 10 mg PO DAILY #2 tablet 06/23/17 Transfer to Outside Facility - Transfer Information Decision to Transfer Date: 05/30/20 Decision to Transfer Time: 09:27 Reason for Transfer: required specialist not available Accepting Provider:: Food Service Utility Worker Dr. Portillo, Hospitalist Dr. Land Accepting Facility: [facility]
[2020-05-30] MEDS ORDERED: diltiaZEM DRIP 125 MG in SODIUM CHLORIDE 0.9% 100ML 100 ML IVPB SCH (10:00)
[2020-05-30] MEDS ORDERED: SODIUM CHLORIDE 0.9% 100ML 0 ML IVPB ONE (10:05)
[2020-05-30 13:02] VITALS: BP 127/73; TEMP 98.8; O2SAT 92
--- NOTE | 2020-06-03 14:22 | RAD ---
EXAM: X-RAY, Chest (1 View) HISTORY: Heart racing. COMPARISON: None. TECHNIQUE: AP view of the chest. FINDINGS: Lungs: The lungs are clear. Pleural space: No pneumothorax or pleural effusion is present. Heart: The heart is normal in size. Bones: No acute bone abnormality. Moderate size peripheral calcified structure projects over the right lung base laterally, likely in the overlying soft tissues (chronic post traumatic fat necrosis?). IMPRESSION: No acute cardiopulmonary finding. Electronically signed by: Gurwinder Wiseman MD 05/30/2020 8:10 AM CDT
== END 2020-05-30 13:15 | disposition short-term general hospital (02) ==
LOC: ER 07:38
DX: I48.92 Unspecified atrial flutter (principal); R00.0 Tachycardia, unspecified; I10 Essential (primary) hypertension; I25.10 Atherosclerotic heart disease of native coronary artery without angina pectoris; J45.909 Unspecified asthma, uncomplicated; Z79.899 Other long term (current) drug therapy; Z79.82 Long term (current) use of aspirin
CPT/HCPCS: 36415; 71045; 80048; 82550; 82553; 83880; 84443; 84484; 85025; 85379; 85610; 85730; 93005; J2405; J7030

== ENCOUNTER → 2020-12-18 | Outpatient (CLI) | payer MEDICARE, OTHER | LOC: GMAE 10:49 | PROVIDERS: ATTEND Family Medicine | DX: E03.9 Hypothyroidism, unspecified (principal); I10 Essential (primary) hypertension; E11.9 Type 2 diabetes mellitus without complications; E78.2 Mixed hyperlipidemia ==